=== PATIENT | female | born 1975 | race Caucasian/White ===

== ENCOUNTER → 2017-10-14 | Outpatient (CLI) | payer OTHER ==
[~2017-10-14] MED LIST: NEXIUM40 MG PO; ZOLOFT50 MG PO
== END | disposition home or self-care (01) ==
LOC: US 10:14
DX: K80.20 Calculus of gallbladder without cholecystitis without obstruction (principal); K76.0 Fatty (change of) liver, not elsewhere classified; R20.0 Anesthesia of skin

== ENCOUNTER 2017-12-24 00:33 | Emergency (ER) | payer OTHER ==
[~2017-12-24] VITALS: Ht 167.6 cm; Wt 122.5 kg
[2017-12-24 00:42] VITALS: BP 124/84
[2017-12-24 01:25] LABS: BASO % 0.5 % (0.0-1.0); EOS # 0.2 10*3/uL (0.0-0.4); EOS % 2.9 % (1.0-4.0); HEMATOCRIT 35.9 % (37.0-47.0); HEMOGLOBIN 11.8 g/dl (12.0-16.0); LYMPH # 1.6 10*3/uL (1.3-4.4); LYMPH % 20.7 % (27.0-41.0); MEAN CELL VOLUME 91.8 fl (81.0-99.0); MEAN CORPUSCULAR HGB 30.2 pg (27.0-31.0); MEAN CORPUSCULAR HGB CONC 32.9 g/dl (33.0-37.0); MEAN PLATELET VOLUME 9.4 fl (9.6-12.3); MONO # 0.7 10*3/uL (0.1-1.0); MONO % 8.4 % (3.0-9.0); NEUT # 5.2 10*3/uL (2.3-7.9); NEUT % 67.1 % (47.0-73.0); PLATELET COUNT AUTOMATED 227 10*3/uL (130-400); RED BLOOD COUNT 3.91 10*6/uL (4.10-5.10); WHITE BLOOD COUNT 7.8 10*3/uL (4.8-10.8)
[2017-12-24 01:45] LABS: ALBUMIN 3.3 gm/dl (3.1-4.5); ALKALINE PHOSPHATASE 130 U/L (45-117); BUN 9 mg/dl (7-24); CHLORIDE 103 mmol/L (98-107); CREATININE 0.65 mg/dL (0.55-1.02); LIPASE 138 U/L (73-393); POTASSIUM 4.1 mmol/L (3.5-5.1); SGOT/AST 92 IU/L (3-35); SGPT/ALT 54 U/L (12-78); SODIUM 139 mmol/L (136-145); TOTAL PROTEIN 6.7 gm/dL (6.4-8.2)
[2017-12-24 01:46] LABS: TROPONIN I < 0.015 ng/ml (<0.045)
[2017-12-24] MEDS ORDERED: IBU800 MG PO (03:17)
== END 2017-12-24 03:26 | disposition home or self-care (01) ==
LOC: ED 00:33
PROVIDERS: Student in an Organized Health Care Education/Training Program
DX: R10.9 Unspecified abdominal pain (principal); Z98.890 Other specified postprocedural states; Z79.899 Other long term (current) drug therapy; Z88.0 Allergy status to penicillin; Z88.1 Allergy status to other antibiotic agents

== ENCOUNTER → 2018-06-18 | Outpatient (CLI) | payer OTHER ==
[~2018-06-18] MED LIST changes: +IBU800 MG PO
== END | disposition home or self-care (01) ==
LOC: RAD 13:54
DX: M47.896 Other spondylosis, lumbar region (principal); M25.552 Pain in left hip; M25.551 Pain in right hip

== ENCOUNTER → 2018-09-20 | Outpatient (CLI) | payer OTHER | END | disposition home or self-care (01) | LOC: RAD 10:21 | DX: R05 Cough (principal); R07.9 Chest pain, unspecified; F17.200 Nicotine dependence, unspecified, uncomplicated ==

== ENCOUNTER 2019-04-11 17:07 | Inpatient (IN) | payer OTHER ==
[~2019-04-11] VITALS: Ht 175.3 cm; Wt 128.4 kg
--- NOTE | ~2019-04-11 | CON ---
[place], [place] REPORT OF CONSULTATION [id number] UN[facility] #: [id number] ROOM: 403 DOCTOR: POPEYE ARCHULETAAMBER BIRTHDATE: [birth year] DOS: 04/13/2019 GASTROENDOSCOPIC REPORT HISTORY OF PRESENT ILLNESS: The patient is a 43-year-old patient who has presented with chief complaint of sudden abdominal pain, left lower quadrant pain. The patient had to be admitted through the Emergency Room with suspected diverticulosis, diverticulitis, complicated with microabscess formation. The patient's initial white blood cell was 16,000, H and H of 12 and 37. Comprehensive metabolic panel; GFR greater than 60. Urinalysis unremarkable. Lipase normal. CT scan of the abdomen and pelvis; findings most consistent with confirmed diverticulitis. Lactic acid was 1.2. CBC differential after start of the Cipro and Flagyl, WBC dropped to 14, H and H dropped to 10 and 32. The patient this morning spikes a temperature of approximately 102 after consuming regular diet and therefore a dose of vancomycin of 1 gram has been added to boost coverage of abscess and microperforation. The patient was kept on clear liquid diet, juice and water and soda. PAST MEDICAL HISTORY: Associated with obesity, diverticulosis, past history of sepsis, abdominal pain. ALLERGIES: CEPHALEXIN AND PENICILLIN. MEDICATIONS: At home has been ibuprofen. SOCIAL HISTORY: Nonsmoker, social alcohol consumer. REVIEW OF SYSTEMS: HEENT: Denies double vision, blurred vision. RESPIRATORY: Denies acute shortness of breath. CARDIOVASCULAR: Denies acute chest pain. DIGESTIVE SYSTEM: Abdominal pain, left lower quadrant pain. PHYSICAL EXAMINATION: VITAL SIGNS: Stable. HEENT: Benign. NECK: Supple, no thyromegaly, no cervical lymphadenopathy. CHEST: Symmetric anatomy, equal expansion. No wheeze, no rhonchi. HEART: Normal sinus rhythm, no gallop, no murmur. ABDOMEN: Obese, large, soft. No hepato-organomegaly. Bowel sounds present. No pulsatile mass. Some tenderness in the left lower quadrant and pain experienced. EXTREMITIES: No cyanosis, no pedal edema. NEUROLOGIC: Alert, oriented to time, place, person. Sensory, motor intact. Cranial nerves 2-12 intact. IMPRESSION: Diverticulosis, diverticulitis, microperforation, leukocytosis, on Cipro and Flagyl due to the fact the patient has a spike of temperature of approximately 102. [place], [place] REPORT OF CONSULTATION NAME: CHRISTIAN HUITRON UNIT #: [id number] ROOM: 403 DOCTOR: POPEYE ARCHULETA,AMBER BIRTHDATE: [birth year] PLAN AND DISCUSSION: We are going to add vancomycin to the coverage. We are going to await followup CT scan of the abdomen that has been organized tonight. Results are not available yet. We will stop solid food diet. We will continue with water, juices, and ice chips and clinical reassessment. After 2 weeks of complete therapy, we are going to await another week or so until we organize a colonoscopy as an outpatient. Thank you very much indeed. AMBER NYE MD CM:CONSTR:REPORT OF CONSULTATION 54 04/14/19 0555 interface
--- NOTE | ~2019-04-11 | WRIGHTHP ---
[place], [place] PATIENT HISTORY AND PHYSICAL EXAM NAME[id number] #: [id number] ROOM: 403 DOCTOR: CORWIN SANTAMARIA MD BIRTHDATE: [birth year] DOS: 04/12/2019 HISTORY OF PRESENT ILLNESS: The patient is a 43-year-old, not known to me, who comes in with complaints of abdominal pain. The patient states that she was in her usual health, did not have any problems until she went for breakfast, came back home and started having abdominal pain, which persisted and so she finally came into the Emergency Room. Pain was mostly all over her abdomen. She denies having any fever or chills. Does not have any nausea or emesis. PAST MEDICAL HISTORY: Significant for: 1. History of cholecystectomy. 2. Major depression, mild. MEDICATIONS: Zoloft and occasionally she takes an omeprazole. FAMILY HISTORY: Noncontributory. Mother last year from complications of aging and father of throat cancer. She is and has two children. She works as a home health aide. PHYSICAL EXAMINATION: GENERAL: She is awake and alert and oriented, in no distress. VITAL SIGNS: Graphic trend shows a blood pressure 118/65, pulse of 92, respirations 16, temperature 99.8, which is the T-max. LUNGS: Clear. HEART: Irregular. ABDOMEN: Obese, some diffuse tenderness present. Abdomen is not rigid. It is soft. EXTREMITIES: Without any edema. LABORATORY DATA: CT of the abdomen and pelvis shows acute diverticulitis, sigmoid with microperforation and extraluminal air, small ovarian cyst. Comprehensive within normal limits except blood sugar is 159. White cell count is 16.3. ASSESSMENT AND PLAN: 1. This is a 43-year-old who presents with abdominal pain, has acute diverticulitis. She does eat a lot of air popped popcorn, which possibly is responsible for this. Consultation with Dr. Vazquez has been obtained. The patient is to be kept n.p.o., IV fluids and IV antibiotics have been ordere. 2. Microperforation, most likely sealed off on its own. The patient does not clinically appear to have an acute abdomen, but we will do an x-ray, acute abdominal series this morning. Surgical consultation has been obtained. 3. Major depression, mild on Zoloft, right now that is the condition, she is kept n.p.o. Medications are on hold. 4. Tachycardia, possibly some mild sepsis pattern. Again, blood cultures are pending. [place], [place] PATIENT HISTORY AND PHYSICAL EXAM NAME: CHRISTIAN HUITRON UNIT #: [id number] ROOM: 403 DOCTOR: CORWIN SANTAMARIA MD BIRTHDATE: [birth year] CORWIN SANTAMARIA MD CM:HISPHYS:PATIENT HISTORY AND PHYSICAL EXAMINATION CORWIN SANTAMARIA MD 04/12/19 0534 interface
--- NOTE | ~2019-04-11 | DS ---
[place], [place] DISCHARGE SUMMARY NAME: CHRISTIAN HUITRON UNIT #: [id number] ROOM: 403 DOCTOR: CORWIN SANTAMARIA MD BIRTHDATE: [birth year] DOS: HOSPITAL COURSE: The patient is a 43-year-old. The patient is not known to me, comes in with complaints of abdominal pain. Please refer to H and P for details. The patient states that she does eat a lot of popcorn. She was evaluated in the ER, was found to have an elevated white cell count of 16,000. CT of the abdomen shows diverticulitis with a microperforation. The patient was kept n.p.o., IV fluids, and IV antibiotics. Consultation with Dr. Vazquez from GI and Dr. Kirkland from Surgery were obtained. She had mild sepsis pattern, cultures were sent. By next day morning, the patient's symptoms had improved and Dr. Kirkland felt that the patient had an uncomplicated diverticulitis. Diet was advanced, but a few hours later, the patient developed high grade fever and tachycardia. Repeat white cell count showed a sudden elevation to 12,000. Repeat CT showed acute worsening diverticulitis with air through the abdominal cavity suggesting the possibility of the perforation getting larger. At this present time, condition was discussed with Dr. Kirkland and we were decided the patient will be transferred to a tertiary care center for further treatment plan. Dr. Kirkland to make arrangements for the patient to go. The patient has been on Cipro, Flagyl, and one dose of vancomycin was given during the night. CORWIN SANTAMARIA MD CM:DISCHARG [id number] CORWNI SANTAMARIA MD 04/14/19 0922 interface
--- NOTE | ~2019-04-11 | PR ---
[place], [place] PROGRESS NOTE [id number] UNIT #: [id number] ROOM: 403 DOCTOR: CORWIN SANTAMARIA MD BIRTHDATE: [birth year] DOS: 04/13/2019 SUBJECTIVE: The patient is feeling good and is not having complaints other than some minimal discomfort in the abdomen. OBJECTIVE: VITAL SIGNS: Blood pressure is 102/60, pulse of 102, respirations 18, temperature 98.8. LUNGS: Clear. HEART: Regular. ABDOMEN: Obese, soft, nontender. EXTREMITIES: Without any edema. LABORATORY DATA: White cell count is normal at 10.8, hemoglobin and hematocrit normal. BMP: Glucose 97, BUN 6, creatinine 0.57, sodium 143, potassium 3.1, chloride 111. ASSESSMENT AND PLAN: 1. Hypokalemia. Supplementation will be ordered. 2. Acute diverticulitis with microperforation, seen by Dr. Kirkland, appreciate his consult. No plans on doing anything further other than continuing antibiotics. We will discontinue IV fluids. The patient's diet will be made regular and I am hoping to discharge the patient to home tomorrow. CORWIN SANTAMARIA MD CM:PNTRANS [id number] CORWIN SANTAMARIA MD 04/13/19 2344 interface
--- NOTE | ~2019-04-11 | PR ---
[place], [place] PROGRESS NOTE NAME: CHRISTIAN HUITRON UNIT #: [id number] ROOM: 403 DOCTOR: CORWIN SANTAMARIA MD BIRTHDATE: [birth year] DOS: 04/14/2019 SUBJECTIVE: The patient is complaining of abdominal pain. She also has menstrual cramps, not sure which pain is worse. OBJECTIVE: VITAL SIGNS: Graphic trend shows a pressure of 131/61, pulse of 103, respirations 18, temperature 100.1 at 3:15, 99.1 at 8:00. LUNGS: Diminished breath sounds. Clear. HEART: Slightly tachycardic. Her heart rate in the low 90s. ABDOMEN: Obese, soft. Tenderness diffusely. EXTREMITIES: Without any edema. CT of the abdomen and pelvis shows acute diverticulitis, free air throughout the abdomen and possible appendicitis with 2.5 cm of left ovary. LABORATORY DATA: White cell count after normalizing has gone up to 12.8. BMP: Glucose 105, BUN 4 and creatinine 0.46, sodium 141, potassium 2.8, chloride 109, bicarbonate 27. Blood cultures, no bacterial growth so far. ASSESSMENT AND PLAN: Complicated diverticulitis with perforation, which most likely did get worse, causing air in her abdominal cavity. Discussed with Dr. Kirkland this morning. The plan is to transfer her out to [facility] or [facility] for further care. CORWIN SANTAMARIA MD CM:PNTRANS [id number] CORWIN SANTAMARIA MD 04/14/19 1023 interface
[~2019-04-11 17:07] MED LIST changes: +ZOLOFT100 MG PO; -ZOLOFT50 MG PO
[2019-04-11 17:08] VITALS: BP 122/60
[2019-04-11 17:40] LABS: BASO % 0.2 % (0.0-1.0); EOS # 0.2 10*3/uL (0.0-0.4); EOS % 0.9 % (1.0-4.0); HEMATOCRIT 37.7 % (37.0-47.0); HEMOGLOBIN 12.4 g/dl (12.0-16.0); LYMPH # 0.9 10*3/uL (1.3-4.4); LYMPH % 5.7 % (27.0-41.0); MEAN CELL VOLUME 93.3 fl (81.0-99.0); MEAN CORPUSCULAR HGB 30.7 pg (27.0-31.0); MEAN CORPUSCULAR HGB CONC 32.9 g/dl (33.0-37.0); MEAN PLATELET VOLUME 10.6 fl (9.6-12.3); MONO % 6.2 % (3.0-9.0); NEUT # 14.1 10*3/uL (2.3-7.9); NEUT % 86.6 % (47.0-73.0); PLATELET COUNT AUTOMATED 262 10*3/uL (130-400); RED BLOOD COUNT 4.04 10*6/uL (4.10-5.10); RED CELL DISTRI WIDTH 13.6 % (0-14.5); WHITE BLOOD COUNT 16.3 10*3/uL (4.8-10.8)
[2019-04-11 17:54] LABS: ALBUMIN 3.6 gm/dl (3.1-4.5); ALKALINE PHOSPHATASE 62 U/L (45-117); BUN 15 mg/dl (7-24); CHLORIDE 109 mmol/L (98-107); CREATININE 0.83 mg/dL (0.55-1.02); LIPASE 210 U/L (73-393); POTASSIUM 3.7 mmol/L (3.5-5.1); SGOT/AST 9 IU/L (3-35); SGPT/ALT 13 U/L (12-78); SODIUM 140 mmol/L (136-145)
--- NOTE | 2019-04-11 17:58 | NUR ---
PT POSITIONED FOR COMFORT W/FAMILY @ BEDSIDE,SAFETY PRECAUTIONS INTACT AND CALL LIGHT WITHIN REACH.
[2019-04-11 19:00] LABS: BILIRUBIN NEGATIVE (NEGATIVE); BLOOD NEGATIVE (NEGATIVE); CLARITY CLEAR (CLEAR); COLOR YELLOW (YELLOW); GLUCOSE NEGATIVE (NEGATIVE); KETONE NEGATIVE (NEGATIVE); LEUKO ESTERASE NEGATIVE (NEGATIVE); NITRITE NEGATIVE (NEGATIVE); PH 5.5 (5.0-9.0); SPECIFIC GRAVITY >= 1.030 (1.005-1.030); UROBILINOGEN 0.2 E.U./dl (0.2-1.0)
[2019-04-11 19:07] LABS: EPITHELIAL CELLS 41-50
[2019-04-11 19:08] LABS: BACTERIA TRACE; MUCOUS 3+; WBC 0-2 wbc/hpf (0-5)
[2019-04-11 19:09] VITALS: BP 118/52
--- NOTE | 2019-04-11 20:08 | NUR ---
PT W/O ACUTE DISTRESS NOTED AN AWAITING PROBABLE ADMISSION,FAMILY REMAINS AT BEDSIDE.
[2019-04-11 22:00] VITALS: BP 141/61
--- NOTE | 2019-04-11 22:00 | NUR ---
A 43, admitted to , under the services of CORWIN Schwartz MD with a diagnosis of DIVERTICULITIS & SEPSIS. Chief complaint is ABDOMINAL PAIN. Patient arrived via bed from ER. Monitor applied. Initial assessment completed. Vital signs taken and recorded. CORWIN SCHWARTZ MD notified of admission to the unit. Orders received. See assessment for past medical history, medications and allergies. Patient and/or family oriented to unit. [address] visitation policy reviewed. Clothing/patient valuable form completed. SKIN WDI. NO WOUNDS. CLEMENTINA REARDON
--- NOTE | 2019-04-11 22:52 | NUR ---
SPOKE WITH DR SANTAMARIA. TELEPHONE ORDERS RECEIVED.
--- NOTE | 2019-04-11 23:34 | NUR ---
ADMINISTERED PRN DILAUDID PRESCRIBED FOR PT COMPLAINT OF ABDOMINAL PAIN RATED A 6/10 ON THE PAIN SCALE. WILL CONTINUE TO MONITOR THE PT AND REASSESS. NO OTHER COMPLAINTS AT THIS TIME. CALL LIGHT IN REACH.
[2019-04-12] VITALS: BP 118/65
--- NOTE | 2019-04-12 00:21 | NUR ---
PT STATES "THE PAIN HAS WENT FROM A 6 TO A 3, THE MEDICATION TOOK THE EDGE OFF". WILL CONTINUE TO MONITOR.
[2019-04-12 06:31] LABS: BASO % 0.2 % (0.0-1.0); EOS % 0.3 % (1.0-4.0); HEMATOCRIT 32.6 % (37.0-47.0); HEMOGLOBIN 10.4 g/dl (12.0-16.0); LYMPH # 1.4 10*3/uL (1.3-4.4); LYMPH % 9.8 % (27.0-41.0); MEAN CELL VOLUME 95.3 fl (81.0-99.0); MEAN CORPUSCULAR HGB 30.4 pg (27.0-31.0); MEAN CORPUSCULAR HGB CONC 31.9 g/dl (33.0-37.0); MEAN PLATELET VOLUME 10.5 fl (9.6-12.3); MONO # 0.8 10*3/uL (0.1-1.0); MONO % 5.6 % (3.0-9.0); NEUT # 11.7 10*3/uL (2.3-7.9); NEUT % 83.7 % (47.0-73.0); PLATELET COUNT AUTOMATED 238 10*3/uL (130-400); RED BLOOD COUNT 3.42 10*6/uL (4.10-5.10)
[2019-04-12 07:06] LABS: BUN 11 mg/dl (7-24); CHLORIDE 109 mmol/L (98-107); CREATININE 0.61 mg/dL (0.55-1.02); POTASSIUM 3.7 mmol/L (3.5-5.1); SODIUM 141 mmol/L (136-145)
[2019-04-12 08:00] VITALS: BP 98/50
--- NOTE | 2019-04-12 09:06 | NUR ---
PT C/O HEADACHE AT THIS TIME AND MEDICATED WITH TYLENOL UPON REQUEST. WILL MONITOR.
--- NOTE | 2019-04-12 10:11 | NUR ---
WAS IN TO SEE PATIENT THIS MORNING. NOTIFIED OF CONSULT WELL AND NO NEW ORDERS OBTAINED.
--- NOTE | 2019-04-12 10:30 | NUR ---
PER PT, TYLENOL HAS BEEN EFFECTIVE. NO FURTHER COMPLAINTS AT THIS TIME.
[2019-04-12 12:00] VITALS: BP 114/50
--- NOTE | 2019-04-12 15:03 | NUR ---
PT MEDICATED WITH TYLENOL FOR COMPLAINTS OF ABD CRAMPING AND HEADACHE. WILL MONITOR.
[2019-04-12 16:00] VITALS: BP 121/60
--- NOTE | 2019-04-12 16:15 | NUR ---
PER PATIENT, MEDICATION HAS BEEN EFFECTIVE. NO FURTHER COMPLAINTS AT THIS TIME. TOLERATING SIPS OF LIQUIDS.
[2019-04-12 20:00] VITALS: BP 124/69
[2019-04-12] MEDS ORDERED: EQL HEADACHE R1 EACH PO (20:43)
[2019-04-12] MEDS ORDERED: TOPCARE IBUPRO200 MG PO (20:47)
[2019-04-12] MEDS ORDERED: NEXIUM 24HR20 M1 PO (20:48)
--- NOTE | 2019-04-12 20:50 | NUR ---
NOTIFIED OF PATIENT'S C/O ABD PAIN & MESTRUAL PAIN. PATIENT REQUESTING HOME EXTRA STRENGTH EXCEDRIN. NEW ORDER RECEIVED FOR IV TORADOL 30 MG X1 DOSE NOW.
--- NOTE | 2019-04-12 20:52 | NUR ---
PT AGREED TO TAKE TYLENOL WHILE WAITING ON IV TORADOL ORDER TO PROFILE.
--- NOTE | 2019-04-12 20:53 | NUR ---
MED REC UPDATED PER PT RECALL. PT BUYS NEXIUM OTC AND DOES NOT KNOW WHAT DOSE SHE TAKES.
--- NOTE | 2019-04-12 21:08 | NUR ---
ONE TIME DOSE IV TORADOL GIVEN PER ORDER FOR C/O ABD CRAMPS/MENSTRUAL CRAMPS RATED 6/10. WILL MONITOR. CALL LIGHT IN REACH.
--- NOTE | 2019-04-12 23:39 | NUR ---
PT DENIES ANY PAIN AT THIS TIME. NO NEEDS VOICED. WILL MONITOR. IV ABX INFUSING PER ORDER. CALL LIGHT IN REACH.
[2019-04-13] VITALS: BP 111/53
--- NOTE | 2019-04-13 02:56 | NUR ---
24 HR chart check completed.
--- NOTE | 2019-04-13 06:11 | NUR ---
PT SET OFF BED ALARM ONCE AGAIN WITH BIPAP SOUNDING & POX OFF FINGER. BIPAP MASK REPLACED, PATIENT ASSISTED TO USE URINAL. PATIENT THEN ASSISTED BACK INTO BED. BIPAP/POX IN USE. WILL MONITOR. CALL LIGHT IN REACH. BED ALARM INTACT. DAUGHTER AT BEDSIDE.
[2019-04-13 06:57] LABS: BASO % 0.2 % (0.0-1.0); EOS # 0.1 10*3/uL (0.0-0.4); EOS % 0.8 % (1.0-4.0); HEMOGLOBIN 10.7 g/dl (12.0-16.0); LYMPH # 0.8 10*3/uL (1.3-4.4); LYMPH % 7.7 % (27.0-41.0); MEAN CELL VOLUME 95.1 fl (81.0-99.0); MEAN CORPUSCULAR HGB 30.8 pg (27.0-31.0); MEAN CORPUSCULAR HGB CONC 32.4 g/dl (33.0-37.0); MEAN PLATELET VOLUME 10.6 fl (9.6-12.3); MONO # 0.8 10*3/uL (0.1-1.0); MONO % 7.7 % (3.0-9.0); NEUT % 83.1 % (47.0-73.0); PLATELET COUNT AUTOMATED 231 10*3/uL (130-400); RED BLOOD COUNT 3.47 10*6/uL (4.10-5.10); RED CELL DISTRI WIDTH 13.8 % (0-14.5); WHITE BLOOD COUNT 10.8 10*3/uL (4.8-10.8)
[2019-04-13 07:26] LABS: BUN 6 mg/dl (7-24); CHLORIDE 111 mmol/L (98-107); CREATININE 0.57 mg/dL (0.55-1.02); POTASSIUM 3.1 mmol/L (3.5-5.1); SODIUM 143 mmol/L (136-145)
[2019-04-13 08:00] VITALS: BP 102/60
--- NOTE | 2019-04-13 08:07 | NUR ---
NOTIFIED OF ONE TIME DOSE OF TORADOL GIVEN LAST NIGHT. THIS RN CALLED , INSTEAD OF . OKAY PER .
--- NOTE | 2019-04-13 08:12 | NUR ---
PATIENT COMPLAINING OF ABD CRAMPING AT THIS TIME AND REQUESTING TYLENOL. MEDICATED PER ORDER. WILL MONITOR.
--- NOTE | 2019-04-13 09:00 | NUR ---
[place] Tube Tester in to talk to patient. Patient states lives at home with her . There are 2 steps in the home. Physician: Dr. Umair Mcguire [facility]acy: [facility] Home health services: none Patient's level of ADLs: INDEPENDENT Patient has working utilities: yes DME: none Follow-up physician's appointment after d/c: she prefers to make her own follow up appt after discharge Does patient want to access PORTAL?: no Discharge plan discussed with patient. She lives at home with her . She is independent in her ADLs and ambulation. Discussed home health care services and she denies any home needs at this time. When medically stable she will be discharged to home. will transport on discharge. DAPHNEY GRAMAJO
--- NOTE | 2019-04-13 10:00 | NUR ---
PER PATIENT, TYLENOL WAS EFFECTIVE. NO FURTHER COMPLAINTS.
[2019-04-13 12:00] VITALS: BP 122/50
--- NOTE | 2019-04-13 13:46 | NUR ---
PT C/O MENSTRUAL CRAMPING AT THIS TIME 01/30 AND REQUESTING TYLENOL. GIVEN PER ORDER. WILL MONITOR.
[2019-04-13 16:00] VITALS: BP 118/60
--- NOTE | 2019-04-13 16:00 | NUR ---
NOTIFIED OF PATIENT'S PERSISTENT INCREASED HR 110'S-120'S, TEMP OF 101.9, & CHILLS. ORDE ROBTAINED FOR REPEAT CT ABD/PEL.
--- NOTE | 2019-04-13 18:20 | NUR ---
PATIENT TRANSPORTED DOWN TO CT SCAN FOR CT ABD/PELVIS.
--- NOTE | 2019-04-13 19:14 | NUR ---
HERE TO SEE PATIENT.
--- NOTE | 2019-04-13 19:44 | NUR ---
CALLED WAX PATTERN COATER TO HAVE CT ABD READ STAT PER 'S REQUEST.
[2019-04-13 20:00] VITALS: BP 122/67
--- NOTE | 2019-04-13 20:44 | NUR ---
NEW IV SITE INITIATED IN L FOREARM. OLD SITE IN LAC PAINFUL PER PT. SITE TO LAC REMOVED & DSD APPLIED. IV VANC INFUSING AT THIS TIME. PO TYLENOL ALSO ADMINISTERED FOR C/O ABD PAIN/MENSTRUAL CRAMPS. ALSO FOR TEMP OF 100.7. WILL MONITOR EFFECTIVENESS. CALL LIGHT IN REACH.
--- NOTE | 2019-04-13 20:50 | NUR ---
HABILITATION ASSISTANT CALLED AGAIN TO SEE ABOUT HAVING CT RESULTS READ STAT. STATES SHE WILL CALL RADIOLOGIST AGAIN.
--- NOTE | 2019-04-13 21:06 | NUR ---
DISCUSSED RESULTS OF CT ABD/PELVIS WITH . PATIENT IS TO REMAIN ABSOLUTELY NPO (NO SIPS) UNTIL STATES OTHERWISE. ALSO INSTRUCTED TO GET AN UPRIGHT KUB NOW TO RULE OUT PNEUMOPERITONEUM.
--- NOTE | 2019-04-13 21:12 | NUR ---
ATTEMPTED TO CALL THREE TIMES WITHOUT ANSWER. WILL ATTEMPT TO GET AHOLD OF .
--- NOTE | 2019-04-13 21:42 | NUR ---
SPOKE TO REGARDING CT ABD/PELVIS RESULTS. ALSO DISCUSSED TALKING WITH , WHO ORDERED NPO & KUB. INSTRUCTED TO ASSESS PATIENT FOR RIGID/BOARD LIKE ABDOMEN AND THEN SEND PT DOWN FOR KUB STAT. CALL WHEN KUB RESULTS. RN ASSESSED PT'S ABDOMEN. ABDOMEN IS SOFT. NO RIGID/BOARD LIKE APPEARANCE NOTED. PATIENT DOES C/O SOME TENDERNESS WITH PALPATION IN LLQ, BUT STATES IT HAS IMPROVED SINCE YESTERDAY. NORMOACTIVE BS AUSCULTATED IN ALL 4 QUADS. PATIENT AWAKE IN BED, ORIENTED X3. TO BE SENT DOWN TO RADIOLOGY FOR STAT KUB.
--- NOTE | 2019-04-13 21:44 | NUR ---
PATIENT TAKEN OFF FLOOR TO ER RADIOLOGY FOR STAT KUB
--- NOTE | 2019-04-13 22:30 | NUR ---
CALLED AT THIS TIME. DISCUSSED KUB RESULTS. NO PNEUMOPERITONEUM NOTED IN DICTATED REPORT. DISCUSSED PREVIOUS DISCUSSION WITH , WHO RECOMMENDED CALLING , WHO IS ALSO ON CONSULT. PER , CALL ON-CALL SURGICAL CONSULT. NO OTHER ORDERS RECEIVED FROM .
--- NOTE | 2019-04-13 22:35 | NUR ---
SPOKE TO , WHO IS COVER MAKING MACHINE OPERATOR FOR SURGERY. DISCUSSED SIGNING OFF TODAY, PER HIS NOTE, AND DISCUSSED NEW CT ABD/PELVIS RESULTS. INSTRUCTED TO CALL .
--- NOTE | 2019-04-13 22:38 | NUR ---
CALLED PER 'S ORDERS. DISCUSSED OLD CT ABD/PELVIS RESULTS, NEW CT ABD/PELVIS RESULTS, AND KUB RESULTS. ALSO DISCUSSED PATIENT'S VITALS (EARLIER IN DAY & NOW) AND RECENT ADVANCEMENT TO REGULAR DIET PER . INSTRUCTED TO KEEP PT NPO AND CONTINUE CURRENT ANTIBIOTICS.
--- NOTE | 2019-04-13 22:42 | NUR ---
ATTEMPTED TO UPDATE . NO ANSWER. WILL ATTEMPT TO CALL AGAIN.
--- NOTE | 2019-04-13 22:46 | NUR ---
SHIFT DIRECTOR UPDATED ON PLAN OF CARE.
[2019-04-14] VITALS: BP 124/55
--- NOTE | 2019-04-14 03:06 | NUR ---
NOTIFIED OF PATIENT'S C/O PAIN/TENDERNESS IN ABDOMEN. DISCUSSED PO TYLENOL ADMINISTERED EARLIER, WHICH WAS EFFECTIVE, BUT PT REQUESTING A "PAIN SHOT" LIKE THE ONE SHE HAD LAST NIGHT. RN EDUCATED PT & DISCUSSED HOW THIS WAS A ONE TIME DOSE. OFFERED PRN DILAUDID ORDERED. PT REFUSING DILAUDID. PER , CHANGE PO TYLENOL TO 1,000 MG TID PRN. OKAY TO GIVE DOSE NOW.
[2019-04-14 03:15] VITALS: BP 131/61
--- NOTE | 2019-04-14 03:35 | NUR ---
PO TYLENOL ADMINISTERED WITH SMALL SIP OF WATER PER 'S ORDERS FOR C/O PAIN ALL OVER ABD "SORENESS" RATED 4/10 AND R SHOULDER PAIN RATED 5/10. ORAL TEMP ALSO 100.1 AT THIS TIME. WILL MONITOR EFFECTIVENESS. CALL LIGHT LEFT IN REACH.
--- NOTE | 2019-04-14 05:12 | NUR ---
PT STATES EARLIER MEDICATION EFFECTIVE. DENIES NEED FOR FURTHER PAIN MEDICATION.
--- NOTE | 2019-04-14 06:07 | NUR ---
SPOKE TO REGARDING PATIENT'S STATUS. DISCUSSED PATIENT'S CT SCANS, KUB, LABS, VITALS, S/S, AND CURRENT MEDICATIONS. STATES PT MAY BE A CANDIDATE FOR TRANSFER. WANTS TO ASSESS PT WHEN SHE ARRIVES TO HOSPITAL. STATES HE WILL BE IN TO SEE PT, BUT WANTS HINA TO ASSESS HER SOON SHE CAN. ALSO WANTS TO BE CALLED WITH AM LABS WHEN THEY COME BACK.
[2019-04-14 06:22] LABS: BASO % 0.2 % (0.0-1.0); EOS % 0.1 % (1.0-4.0); HEMATOCRIT 30.6 % (37.0-47.0); HEMOGLOBIN 9.9 g/dl (12.0-16.0); LYMPH % 7.9 % (27.0-41.0); MEAN CELL VOLUME 93.6 fl (81.0-99.0); MEAN CORPUSCULAR HGB 30.3 pg (27.0-31.0); MEAN CORPUSCULAR HGB CONC 32.4 g/dl (33.0-37.0); MEAN PLATELET VOLUME 10.7 fl (9.6-12.3); MONO # 0.9 10*3/uL (0.1-1.0); MONO % 7.2 % (3.0-9.0); NEUT # 10.7 10*3/uL (2.3-7.9); NEUT % 83.6 % (47.0-73.0); PLATELET COUNT AUTOMATED 246 10*3/uL (130-400); RED BLOOD COUNT 3.27 10*6/uL (4.10-5.10); RED CELL DISTRI WIDTH 13.7 % (0-14.5); WHITE BLOOD COUNT 12.8 10*3/uL (4.8-10.8)
[2019-04-14 06:37] LABS: BUN 4 mg/dl (7-24); CHLORIDE 109 mmol/L (98-107); CREATININE 0.46 mg/dL (0.55-1.02); POTASSIUM 2.8 mmol/L (3.5-5.1); SODIUM 141 mmol/L (136-145)
--- NOTE | 2019-04-14 07:05 | NUR ---
UPDATED ON AM LABS. NEW ORDERS RECEIVED FOR 1. NS W/ 20 MEQ KCL @ 100 ML/HR X 1 BAG NOW 2. D5NS W/ 20 MEQ KCL @ 85 ML/HR X1 BAG (TO FOLLOW NS W/ 20 MEQ KCL) 3. K RUN (20 MEQ) NOW & K RUN (20 MEQ) AT NOON 4. AM LABS (CBC, BMP, MAG, PHOS)
--- NOTE | 2019-04-14 07:10 | NUR ---
UPDATED ON AM [facility]S PER REQUEST. NO NEW ORDERS RECEIVED.
[2019-04-14 08:00] VITALS: BP 110/60
--- NOTE | 2019-04-14 11:25 | NUR ---
PRN TYLENOL GIVEN FOR 99.6 TEMPERATURE AND DIFFUSE ABD PAIN. WILL MONITOR EFFECTIVENESS.
--- NOTE | 2019-04-14 11:38 | NUR ---
SPOKE WITH DR NYE. UPDATED ABOUT PT BEING TRANSFERRED. CONTINUE TO MONITOR THE PT.
[2019-04-14 11:52] VITALS: BP 107/56
--- NOTE | 2019-04-14 12:00 | NUR ---
Discussed discharge planning with nurse. Patient is being transferred to [facility].
[2019-04-14 16:00] VITALS: BP 140/70
--- NOTE | 2019-04-14 18:01 | NUR ---
SPKE WITH [facility] - THEY ARE SORRY BUT THEY ARE VERY TIGHT ON BEDS AND STILL DO NOT HAVE AN BED ASSIGNMENT FOR HER. FEVER UP TO 101.6 AND PATIENT IS VERY ANXIOUS
--- NOTE | 2019-04-14 18:05 | NUR ---
DR CHAKRABORTY CALLED WITH NO BED AVAILIBILITY AT [facility] & THEY ARE UNSURE WHEN THEY WILL GET A BED AND THAT THE PATIENT'S FEVER HAS CLIMBED TO 101.6 IN THE LAST 90 MINUTES AND IT IS TOO SOON FOR TYLENOL. HE SAID UNLESS IT IS A SURGICAL ISSUE I AM TO CALL DR SANTAMARIA & PO FOR THESE ISSUES.
--- NOTE | 2019-04-14 18:14 | NUR ---
DR SANTAMARIA CALLED ORDERS REVEIWED. ORDERS RECEIVED.
[2019-04-14 20:00] VITALS: BP 121/78
--- NOTE | 2019-04-14 20:22 | NUR ---
CALLED [facility] CALL AT [phone]. SPOKE TO [employer] SOCIAL STUDIES TUTOR REGARDING PATIENT TRANSFER. STATES EVERYTHING THAT NEEDS TO BE DONE HAS ALREADY BEEN DONE, BUT THEY ARE STILL WAITING ON A BED FOR PT. STATES THEY WILL CALL [facility] WHEN BED IS AVAILABLE.
--- NOTE | 2019-04-14 20:56 | NUR ---
RECEIVED A BED FROM HERLINDA AT [facility]. PATIENT WILL BE GOING TO ROOM 890 BED 2. PHONE NUMBER TO CALL FOR REPORT [phone]. ACCEPTING DR IS . NURSE TO NURSE REPORT GIVEN TO DERREK. CALL BACK NUMBER FOR [address] [facility] NURSES STATION PROVIDED FOR ANY FURTHER QUESTIONS. SOCIAL WORKER ARRANGING TRANSPORTATION AT THIS TIME. WILL CALL DERREK/[facility] BACK WHEN PATIENT IS TO LEAVE.
--- NOTE | 2019-04-14 21:08 | NUR ---
UPDATED ON PATIENT'S PLAN FOR TRANSFER TONIGHT. PATIENT AWARE OF PLAN TO TRANSFER TONIGHT. STATES SHE WILL CALL [facility] HERSELF & THAT RN DOES NOT NEED TO MAKE ANY FAMILY PHONE CALLS ON HER BEHALF.
--- NOTE | 2019-04-14 21:50 | NUR ---
[facility] TO TRANSPORT PATIENT TO [facility]. WILL CALL BACK WITH ETALissa
--- NOTE | 2019-04-14 22:40 | NUR ---
KAMILLA CALLED. JUST LEAVING [facility] & ON THEIR WAY HERE.
--- NOTE | 2019-04-15 | NUR ---
PATIENT TAKEN OFF FLOOR IN CARE OF [facility]
--- NOTE | 2019-04-15 00:01 | NUR ---
SPOKE TO ROBBY AT [facility]. NOTIFIED THAT PAT[facility] WAY [facility].
== END 2019-04-15 | disposition short-term general hospital (02) | DRG 872 ==
LOC: ED 17:07 → EDHOLD 21:09 → 4E 21:09
PROVIDERS: Internal Medicine Gastroenterology; Physician Assistant; ADMIT Internal Medicine
DX: A41.9 Sepsis, unspecified organism (principal); K57.20 Diverticulitis of large intestine with perforation and abscess without bleeding; Z68.41 Body mass index [BMI] 40.0-44.9, adult; F32.9 Major depressive disorder, single episode, unspecified; E66.9 Obesity, unspecified; E87.6 Hypokalemia; K57.90 Diverticulosis of intestine, part unspecified, without perforation or abscess without bleeding; Z82.49 Family history of ischemic heart disease and other diseases of the circulatory system; Z88.0 Allergy status to penicillin; Z82.5 Family history of asthma and other chronic lower respiratory diseases; Z83.3 Family history of diabetes mellitus; Z90.49 Acquired absence of other specified parts of digestive tract

== ENCOUNTER → 2019-04-29 | Outpatient (CLI) | payer OTHER ==
[~2019-04-29] MED LIST changes: +EQL HEADACHE R1 EACH PO; +NEXIUM 24HR20 M1 PO; +TOPCARE IBUPRO200 MG PO
== END | disposition home or self-care (01) ==
LOC: CT 09:55
DX: K57.92 Diverticulitis of intestine, part unspecified, without perforation or abscess without bleeding (principal)

== ENCOUNTER → 2020-01-30 | Outpatient (CLI) | payer OTHER | END | disposition home or self-care (01) | LOC: COVID19 09:47 | DX: B34.9 Viral infection, unspecified (principal); Z20.828 Contact with and (suspected) exposure to other viral communicable diseases; Z78.9 Other specified health status ==

== ENCOUNTER → 2022-04-11 | Outpatient (CLI) | payer OTHER | END | disposition home or self-care (01) | LOC: MRI 04-06 12:45 | PROVIDERS: ATTEND Orthopaedic Surgery | DX: M51.36 Other intervertebral disc degeneration, lumbar region (principal); M48.062 Spinal stenosis, lumbar region with neurogenic claudication; M43.16 Spondylolisthesis, lumbar region ==